=== PATIENT | male | born 1985 | race Two or more races ===

== ENCOUNTER 2019-02-03 21:46 | Emergency (ER) | payer MEDICAID, OTHER ==
[~2019-02-03] VITALS: Ht 165.1 cm; Wt 72.6 kg
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
--- NOTE | 2019-02-03 23:14 | NUR ---
ER MD AT BEDSIDE TO EVAL PT WITH ORDERS RECEIVED.
--- NOTE | 2019-02-03 23:28 | NUR ---
ER MD AT BEDSIDE TO EVAL PT WITH ORDERS RECEIVED. WILL CARRY OUT ORDERS.
[2019-02-03] MEDS ORDERED: LIDOCAINE HCL/MPF 1% 30 ML VIAL IJ ONE (23:32)
--- NOTE | 2019-02-03 23:45 | NUR ---
PT TRANSPORTED TO RADIOLOGY FOR CT'S
[2019-02-04] MEDS ORDERED: TDAP [DIPH/PERTUSSIS/TET] 0.5 ML VIAL IM ONE ×2 (00:04)
[2019-02-04] MEDS ORDERED: AMOXICILLIN TRIHYDRATE 250 MG CAPSULE ONE (02:56)
[2019-02-04] MEDS ORDERED: AMOXICILLIN TRIHYDRATE 250 MG CAPSULE PO ONE (03:00)
[2019-02-04 03:21] VITALS: BP 127/73
--- NOTE | 2019-02-04 03:24 | NUR ---
Patient discharged to home in stable condition. Written and verbal after care instructions given. Patient verbalizes understanding of instruction. ambulatory with a steady gait noted. pt aaox4 no acute distress noted, resp even and unlabored.
== END 2019-02-04 03:50 | disposition home or self-care (01) ==
LOC: ER 21:48
DX: S02.2XXA Fracture of nasal bones, initial encounter for closed fracture (principal); S01.111A Laceration without foreign body of right eyelid and periocular area, initial encounter; S01.511A Laceration without foreign body of lip, initial encounter; Y04.0XXA Assault by unarmed brawl or fight, initial encounter; Y93.89 Activity, other specified; Y92.488 Other paved roadways as the place of occurrence of the external cause; Y99.8 Other external cause status
CPT/HCPCS: 12011; 40650; 70450; 70486; 72125; 90471; 90715; 99284; A6403; J3490